=== PATIENT | female | born 1975 | race Caucasian/White ===

== ENCOUNTER 2020-12-17 13:55 | Inpatient (IN) | payer OTHER ==
[2020-12-17 15:08] VITALS: BMI 26.4
[2020-12-17] MEDS ORDERED: BISMUTH SUBSALICYLATE 524 MG/30 ML PO PRN (20:01)
[2020-12-17] MEDS ORDERED: ONDANSETRON *ODT* 4 MG TABLET SL PRN (20:01)
[2020-12-17] MEDS ORDERED: MAGNESIUM HYDROX 2400MG/30ML ORAL SUSPENSION 30 ML CUP PO PRN (20:01)
[2020-12-17] MEDS ORDERED: MAG HYDROX/AL HYDROX/SIMETH 30 ML UNIT-DOSE CUP PO PRN (20:01)
[2020-12-17] MEDS ORDERED: IBUPROFEN 200 MG TABLET PO PRN (20:01)
[2020-12-17] MEDS ORDERED: MAGNESIUM CITRATE 300 ML BOTTLE PO PRN (20:01)
[2020-12-17] MEDS ORDERED: MENTHOL/PHENOL 1 EACH UD MM PRN (20:01)
[2020-12-17] MEDS ORDERED: LORazepam 1 MG TABLET PO PRN (20:04)
[2020-12-17] MEDS ORDERED: SODIUM CHLORIDE NASAL SPRAY 44 ML BOTTLE NS PRN (20:04)
[2020-12-17] MEDS ORDERED: LORazepam 2 MG TABLET PO ONE (20:04)
[2020-12-17] MEDS: MELATONIN 5 MG TABLETS PO SCH (21:53)
[2020-12-17] MEDS: SPIRONOLACTONE 25 MG TABLET PO SCH (21:53)
[2020-12-17] MEDS: THIAMINE HCL 100 MG TABLET (FP) PO SCH (21:53)
[2020-12-17] MEDS: LORazepam 2 MG TABLET PO SCH (22:26)
[2020-12-18] MEDS: LORazepam 2 MG TABLET PO SCH ×4 (05:29→22:46)
[2020-12-18] MEDS: PRENATAL VITAMINS W/ FOLIC ACID TABLET (FP) PO SCH (10:48)
[2020-12-18] MEDS: FUROSEMIDE 20 MG TABLET (FP) PO SCH (10:48)
[2020-12-18] MEDS: LISINOPRIL 5 MG TABLET PO SCH (10:49)
[2020-12-18] MEDS: SPIRONOLACTONE 25 MG TABLET PO SCH (10:50)
[2020-12-18] MEDS: CYANOCOBALAMIN 1,000 MCG TABLET (FP) PO SCH (10:50)
[2020-12-18] MEDS: THIAMINE HCL 100 MG TABLET (FP) PO SCH ×2 (10:50→22:46)
[2020-12-18] MEDS: FERROUS SO4 325 MG TABLET (FP) PO SCH (10:50)
[2020-12-18] MEDS: SERTRALINE HCL 25 MG TABLET (FP) PO SCH (11:35)
[2020-12-18 13:17] LABS: HEMATOCRIT 33.3 % (32.4-45.2); HEMOGLOBIN 10.8 GM/dL (10.7-15.3); MCH 26.9 pg (25.7-33.7); MCHC 32.6 g/dl (32.0-36.0); MEAN CELL VOLUME 82.7 fl (80-96); PLATELET COUNT 133 10^3/uL (134-434); RBC 4.02 M/mm3 (3.60-5.2); RDW 19.2 % (11.6-15.6); WHITE BLOOD COUNT 3.5 K/mm3 (4.0-10.0)
[2020-12-18 13:22] LABS: CALCIUM 8.3 mg/dL (8.5-10.1)
[2020-12-18 13:23] LABS: ALBUMIN 2.6 g/dl (3.4-5.0); BLOOD UREA NITROGEN 7.8 mg/dL (7-18)
[2020-12-18 13:27] LABS: CREATININE 0.5 mg/dL (0.55-1.3)
[2020-12-18 13:29] LABS: BILIRUBIN,TOTAL 1.3 mg/dL (0.2-1); TOT PROT 7.5 g/dl (6.4-8.2)
[2020-12-18] MEDS: hydrOXYzine PAMOATE 25 MG CAPSULE (FP) PO PRN (17:51)
[2020-12-18] MEDS ORDERED: cloNIDine HCL 0.1 MG TABLET PO ONE (18:45)
[2020-12-18] MEDS: MELATONIN 5 MG TABLETS PO SCH (22:46)
[2020-12-19] MEDS: LORazepam 1 MG TABLET PO SCH ×4 (06:52→22:49)
[2020-12-19] MEDS ORDERED: MASKS NR ONE (06:55)
[2020-12-19] MEDS: PRENATAL VITAMINS W/ FOLIC ACID TABLET (FP) PO SCH (10:33)
[2020-12-19] MEDS: LISINOPRIL 5 MG TABLET PO SCH (10:33)
[2020-12-19] MEDS: FUROSEMIDE 20 MG TABLET (FP) PO SCH (10:33)
[2020-12-19] MEDS: SPIRONOLACTONE 25 MG TABLET PO SCH (10:33)
[2020-12-19] MEDS: SERTRALINE HCL 25 MG TABLET (FP) PO SCH (10:33)
[2020-12-19] MEDS: FERROUS SO4 325 MG TABLET (FP) PO SCH (10:34)
[2020-12-19] MEDS: THIAMINE HCL 100 MG TABLET (FP) PO SCH ×2 (10:34→22:49)
[2020-12-19] MEDS: CYANOCOBALAMIN 1,000 MCG TABLET (FP) PO SCH (10:34)
[2020-12-19] MEDS: MELATONIN 5 MG TABLETS PO SCH (22:49)
[2020-12-19] MEDS: hydrOXYzine PAMOATE 25 MG CAPSULE (FP) PO PRN (22:51)
[2020-12-20] MEDS ORDERED: LORazepam 0.5 MG TABLET PO PRN
[2020-12-20] MEDS: LORazepam 0.5 MG TABLET PO SCH ×4 (05:55→22:12)
[2020-12-20] MEDS: FUROSEMIDE 20 MG TABLET (FP) PO SCH (10:19)
[2020-12-20] MEDS: THIAMINE HCL 100 MG TABLET (FP) PO SCH ×2 (10:19→22:11)
[2020-12-20] MEDS: CYANOCOBALAMIN 1,000 MCG TABLET (FP) PO SCH (10:19)
[2020-12-20] MEDS: FERROUS SO4 325 MG TABLET (FP) PO SCH (10:19)
[2020-12-20] MEDS: PRENATAL VITAMINS W/ FOLIC ACID TABLET (FP) PO SCH (10:19)
[2020-12-20] MEDS: SERTRALINE HCL 25 MG TABLET (FP) PO SCH (10:19)
[2020-12-20] MEDS: LISINOPRIL 5 MG TABLET PO SCH (10:19)
[2020-12-20] MEDS: SPIRONOLACTONE 25 MG TABLET PO SCH (11:26)
[2020-12-20 14:25] LABS: BILIRUBIN,DIRECT 0.8 mg/dL (0.0-0.2)
[2020-12-20 14:27] LABS: BILIRUBIN,TOTAL 2.5 mg/dL (0.2-1); TOT PROT 8.5 g/dl (6.4-8.2)
[2020-12-20] MEDS: hydrOXYzine PAMOATE 25 MG CAPSULE (FP) PO PRN (18:28)
[2020-12-20] MEDS: MELATONIN 5 MG TABLETS PO SCH (22:15)
[2020-12-21] MEDS ORDERED: LORazepam 0.5 MG TABLET PO ONE (05:00)
[2020-12-21 08:51] VITALS: BP 125/79; PULSE 73; TEMP 96.8
[2020-12-21] MEDS: SERTRALINE HCL 25 MG TABLET (FP) PO SCH (10:06)
[2020-12-21] MEDS: CYANOCOBALAMIN 1,000 MCG TABLET (FP) PO SCH (10:06)
[2020-12-21] MEDS: FERROUS SO4 325 MG TABLET (FP) PO SCH (10:06)
[2020-12-21] MEDS: SPIRONOLACTONE 25 MG TABLET PO SCH (10:06)
[2020-12-21] MEDS: FUROSEMIDE 20 MG TABLET (FP) PO SCH (10:06)
[2020-12-21] MEDS: PRENATAL VITAMINS W/ FOLIC ACID TABLET (FP) PO SCH (10:07)
[2020-12-21] MEDS: LISINOPRIL 5 MG TABLET PO SCH (10:08)
[2020-12-21] MEDS: THIAMINE HCL 100 MG TABLET (FP) PO SCH (10:10)
== END 2020-12-21 12:30 | disposition other institution (70) | DRG 775 ==
LOC: YASAS 13:55 → Y3N 19:41
PROVIDERS: ADMIT Allergy & Immunology; ATTEND Allergy & Immunology
PROC: HZ2ZZZZ Detoxification Services for Substance Abuse Treatment (ICD-10-PCS; principal; 2020-12-17)
DX: F10.230 Alcohol dependence with withdrawal, uncomplicated (principal); F10.24 Alcohol dependence with alcohol-induced mood disorder; F10.220 Alcohol dependence with intoxication, uncomplicated; I10 Essential (primary) hypertension; H91.91 Unspecified hearing loss, right ear; M54.5 Low back pain; G89.29 Other chronic pain; R73.9 Hyperglycemia, unspecified; R94.5 Abnormal results of liver function studies; Z86.59 Personal history of other mental and behavioral disorders; Z87.891 Personal history of nicotine dependence; Z99.89 Dependence on other enabling machines and devices; Z88.0 Allergy status to penicillin; Z56.0 Unemployment, unspecified
CPT/HCPCS: 36415; 80053; 80076; 81025; 82947; 85027; 86780; C9803; J0735; U0003; U0005

== ENCOUNTER 2020-12-21 12:56 | Inpatient (IN) | payer OTHER ==
[2020-12-21] MEDS ORDERED: PNEUMOC 13-VAL CONJ-DIP CRM/PF 0.5 ML DISP.SYRIN IM ONE (13:17)
[2020-12-21] MEDS ORDERED: MAGNESIUM CITRATE 300 ML BOTTLE PO PRN (14:10)
[2020-12-21] MEDS ORDERED: NICOTINE 10 MG CARTRIDGE (INHALER) IH PRN (14:10)
[2020-12-21] MEDS ORDERED: guaiFENesin 200 MG/10 ML 10 ML UNIT-DOSE CUPS PO PRN (14:10)
[2020-12-21] MEDS ORDERED: MAGNESIUM HYDROX 2400MG/30ML ORAL SUSPENSION 30 ML CUP PO PRN (14:10)
[2020-12-21] MEDS ORDERED: MENTHOL/PHENOL 1 EACH UD MM PRN (14:10)
[2020-12-21] MEDS ORDERED: hydrOXYzine PAMOATE 25 MG CAPSULE (FP) PO PRN (14:10)
[2020-12-21] MEDS ORDERED: ACETAMINOPHEN 325 MG TABLET (FP) PO PRN (14:10)
[2020-12-21] MEDS ORDERED: P-EPHED 60MG/TRIPROLIDI 2.5MG TABLET PO PRN (14:10)
[2020-12-21] MEDS ORDERED: LOPERAMIDE HCL 2 MG CAPSULE PO PRN (14:10)
[2020-12-21] MEDS: IBUPROFEN 400 MG TABLET (FP) PO PRN (18:23)
[2020-12-21] MEDS: MELATONIN 5 MG TABLETS PO SCH (21:39)
[2020-12-21] MEDS: THIAMINE HCL 100 MG TABLET (FP) PO SCH (21:39)
[2020-12-22] MEDS: PRENATAL VITAMINS W/ FOLIC ACID TABLET (FP) PO SCH (10:06)
[2020-12-22] MEDS: SERTRALINE HCL 25 MG TABLET (FP) PO SCH (10:08)
[2020-12-22] MEDS: LISINOPRIL 5 MG TABLET PO SCH (10:08)
[2020-12-22] MEDS: NICOTINE 7 MG/24 HOURS TOPICAL PATCH TD SCH (10:08)
[2020-12-22] MEDS: FERROUS SO4 325 MG TABLET (FP) PO SCH (10:08)
[2020-12-22] MEDS: SPIRONOLACTONE 25 MG TABLET PO SCH (10:09)
[2020-12-22] MEDS: CYANOCOBALAMIN 1,000 MCG TABLET (FP) PO SCH (10:10)
[2020-12-22] MEDS: SODIUM CHLORIDE NASAL SPRAY 44 ML BOTTLE NS PRN (10:11)
[2020-12-22] MEDS: FUROSEMIDE 20 MG TABLET (FP) PO SCH (10:45)
[2020-12-22] MEDS ORDERED: PNEUMOCOCCAL 23 VACCINE 0.5 ML VIAL IM ONE (12:00)
[2020-12-22] MEDS: IBUPROFEN 400 MG TABLET (FP) PO PRN (13:00)
[2020-12-22] MEDS ORDERED: TUBERCULIN PPD 5 TU/0.1ML VIAL ID ONE (18:04)
[2020-12-22] MEDS: THIAMINE HCL 100 MG TABLET (FP) PO SCH (21:43)
[2020-12-22] MEDS: MELATONIN 5 MG TABLETS PO SCH (21:43)
[2020-12-23] MEDS: SERTRALINE HCL 25 MG TABLET (FP) PO SCH (09:39)
[2020-12-23] MEDS: SPIRONOLACTONE 25 MG TABLET PO SCH (09:40)
[2020-12-23] MEDS: LISINOPRIL 5 MG TABLET PO SCH (09:40)
[2020-12-23] MEDS: FUROSEMIDE 20 MG TABLET (FP) PO SCH (09:40)
[2020-12-23] MEDS: PRENATAL VITAMINS W/ FOLIC ACID TABLET (FP) PO SCH (09:40)
[2020-12-23] MEDS: FERROUS SO4 325 MG TABLET (FP) PO SCH (09:40)
[2020-12-23] MEDS: NICOTINE 7 MG/24 HOURS TOPICAL PATCH TD SCH (09:40)
[2020-12-23] MEDS: CYANOCOBALAMIN 1,000 MCG TABLET (FP) PO SCH (09:40)
[2020-12-23] MEDS: IBUPROFEN 400 MG TABLET (FP) PO PRN (17:32)
[2020-12-23] MEDS: MELATONIN 5 MG TABLETS PO SCH (21:33)
[2020-12-23] MEDS: THIAMINE HCL 100 MG TABLET (FP) PO SCH (21:33)
[2020-12-24] MEDS: PRENATAL VITAMINS W/ FOLIC ACID TABLET (FP) PO SCH (10:18)
[2020-12-24] MEDS: NICOTINE 7 MG/24 HOURS TOPICAL PATCH TD SCH (10:18)
[2020-12-24] MEDS: LISINOPRIL 5 MG TABLET PO SCH (10:19)
[2020-12-24] MEDS: SERTRALINE HCL 25 MG TABLET (FP) PO SCH (10:19)
[2020-12-24] MEDS: FERROUS SO4 325 MG TABLET (FP) PO SCH (10:19)
[2020-12-24] MEDS: SPIRONOLACTONE 25 MG TABLET PO SCH (10:20)
[2020-12-24] MEDS: FUROSEMIDE 20 MG TABLET (FP) PO SCH (10:20)
[2020-12-24] MEDS: CYANOCOBALAMIN 1,000 MCG TABLET (FP) PO SCH (10:22)
[2020-12-24] MEDS: THIAMINE HCL 100 MG TABLET (FP) PO SCH (21:30)
[2020-12-24] MEDS: MELATONIN 5 MG TABLETS PO SCH ×2 (21:30→21:46)
[2020-12-24] MEDS: IBUPROFEN 400 MG TABLET (FP) PO PRN (23:34)
[2020-12-25] MEDS: SPIRONOLACTONE 25 MG TABLET PO SCH (10:12)
[2020-12-25] MEDS: SERTRALINE HCL 25 MG TABLET (FP) PO SCH (10:12)
[2020-12-25] MEDS: CYANOCOBALAMIN 1,000 MCG TABLET (FP) PO SCH (10:12)
[2020-12-25] MEDS: PRENATAL VITAMINS W/ FOLIC ACID TABLET (FP) PO SCH (10:12)
[2020-12-25] MEDS: SODIUM CHLORIDE NASAL SPRAY 44 ML BOTTLE NS PRN (10:12)
[2020-12-25] MEDS: FERROUS SO4 325 MG TABLET (FP) PO SCH (10:12)
[2020-12-25] MEDS: LISINOPRIL 5 MG TABLET PO SCH (10:12)
[2020-12-25] MEDS: NICOTINE 7 MG/24 HOURS TOPICAL PATCH TD SCH (10:13)
[2020-12-25] MEDS: FUROSEMIDE 20 MG TABLET (FP) PO SCH (10:14)
[2020-12-25] MEDS: MELATONIN 5 MG TABLETS PO SCH (21:46)
[2020-12-25] MEDS: THIAMINE HCL 100 MG TABLET (FP) PO SCH (21:47)
[2020-12-26] MEDS ORDERED: PT OWN MED DRAWER 7, Y5N ONE (09:02)
[2020-12-26] MEDS: CYANOCOBALAMIN 1,000 MCG TABLET (FP) PO SCH (09:58)
[2020-12-26] MEDS: FERROUS SO4 325 MG TABLET (FP) PO SCH (09:58)
[2020-12-26] MEDS: SPIRONOLACTONE 25 MG TABLET PO SCH (09:58)
[2020-12-26] MEDS: LISINOPRIL 5 MG TABLET PO SCH (09:58)
[2020-12-26] MEDS: FUROSEMIDE 20 MG TABLET (FP) PO SCH (09:58)
[2020-12-26] MEDS: SERTRALINE HCL 25 MG TABLET (FP) PO SCH (09:58)
[2020-12-26] MEDS: PRENATAL VITAMINS W/ FOLIC ACID TABLET (FP) PO SCH (09:58)
[2020-12-26] MEDS: NICOTINE 7 MG/24 HOURS TOPICAL PATCH TD SCH (09:59)
[2020-12-26] MEDS: MELATONIN 5 MG TABLETS PO SCH (21:18)
[2020-12-26] MEDS: THIAMINE HCL 100 MG TABLET (FP) PO SCH (21:19)
[2020-12-27] MEDS: PRENATAL VITAMINS W/ FOLIC ACID TABLET (FP) PO SCH (10:32)
[2020-12-27] MEDS: SERTRALINE HCL 25 MG TABLET (FP) PO SCH (10:33)
[2020-12-27] MEDS: FERROUS SO4 325 MG TABLET (FP) PO SCH (10:33)
[2020-12-27] MEDS: CYANOCOBALAMIN 1,000 MCG TABLET (FP) PO SCH (10:34)
[2020-12-27] MEDS: LISINOPRIL 5 MG TABLET PO SCH (10:35)
[2020-12-27] MEDS: NICOTINE 7 MG/24 HOURS TOPICAL PATCH TD SCH (10:35)
[2020-12-27] MEDS: FUROSEMIDE 20 MG TABLET (FP) PO SCH (10:35)
[2020-12-27] MEDS: SPIRONOLACTONE 25 MG TABLET PO SCH (10:53)
[2020-12-27] MEDS: SODIUM CHLORIDE NASAL SPRAY 44 ML BOTTLE NS PRN (10:53)
[2020-12-27] MEDS: MELATONIN 5 MG TABLETS PO SCH (21:45)
[2020-12-27] MEDS: THIAMINE HCL 100 MG TABLET (FP) PO SCH (21:45)
[2020-12-28] MEDS: LISINOPRIL 5 MG TABLET PO SCH (10:24)
[2020-12-28] MEDS: PRENATAL VITAMINS W/ FOLIC ACID TABLET (FP) PO SCH (10:24)
[2020-12-28] MEDS: SERTRALINE HCL 25 MG TABLET (FP) PO SCH (10:24)
[2020-12-28] MEDS: FERROUS SO4 325 MG TABLET (FP) PO SCH (10:24)
[2020-12-28] MEDS: FUROSEMIDE 20 MG TABLET (FP) PO SCH (10:24)
[2020-12-28] MEDS: SPIRONOLACTONE 25 MG TABLET PO SCH (10:24)
[2020-12-28] MEDS: NICOTINE 7 MG/24 HOURS TOPICAL PATCH TD SCH (10:24)
[2020-12-28] MEDS: CYANOCOBALAMIN 1,000 MCG TABLET (FP) PO SCH (11:00)
[2020-12-28] MEDS: MELATONIN 5 MG TABLETS PO SCH (21:47)
[2020-12-28] MEDS: THIAMINE HCL 100 MG TABLET (FP) PO SCH (21:47)
[2020-12-29] MEDS: SODIUM CHLORIDE NASAL SPRAY 44 ML BOTTLE NS PRN (06:38)
[2020-12-29] MEDS ORDERED: PT OWN MED DRAWER 7, Y5N ONE (06:40)
[2020-12-29] MEDS: PRENATAL VITAMINS W/ FOLIC ACID TABLET (FP) PO SCH (09:17)
[2020-12-29] MEDS: FUROSEMIDE 20 MG TABLET (FP) PO SCH (09:18)
[2020-12-29] MEDS: SERTRALINE HCL 25 MG TABLET (FP) PO SCH (09:18)
[2020-12-29] MEDS: NICOTINE 7 MG/24 HOURS TOPICAL PATCH TD SCH (09:18)
[2020-12-29] MEDS: FERROUS SO4 325 MG TABLET (FP) PO SCH (09:18)
[2020-12-29] MEDS: CYANOCOBALAMIN 1,000 MCG TABLET (FP) PO SCH (09:18)
[2020-12-29] MEDS: SPIRONOLACTONE 25 MG TABLET PO SCH (09:18)
[2020-12-29] MEDS: LISINOPRIL 5 MG TABLET PO SCH (09:19)
[2020-12-29] MEDS: THIAMINE HCL 100 MG TABLET (FP) PO SCH (21:33)
[2020-12-29] MEDS: MELATONIN 5 MG TABLETS PO SCH (21:33)
[2020-12-30] MEDS: PRENATAL VITAMINS W/ FOLIC ACID TABLET (FP) PO SCH (10:20)
[2020-12-30] MEDS: FERROUS SO4 325 MG TABLET (FP) PO SCH (10:20)
[2020-12-30] MEDS: SERTRALINE HCL 25 MG TABLET (FP) PO SCH (10:20)
[2020-12-30] MEDS: NICOTINE 7 MG/24 HOURS TOPICAL PATCH TD SCH (10:20)
[2020-12-30] MEDS: LISINOPRIL 5 MG TABLET PO SCH (10:22)
[2020-12-30] MEDS: FUROSEMIDE 20 MG TABLET (FP) PO SCH (10:22)
[2020-12-30] MEDS: CYANOCOBALAMIN 1,000 MCG TABLET (FP) PO SCH (10:23)
[2020-12-30] MEDS: SPIRONOLACTONE 25 MG TABLET PO SCH (10:24)
[2020-12-30] MEDS: MELATONIN 5 MG TABLETS PO SCH (21:34)
[2020-12-30] MEDS: THIAMINE HCL 100 MG TABLET (FP) PO SCH (21:34)
[2020-12-31] MEDS: SODIUM CHLORIDE NASAL SPRAY 44 ML BOTTLE NS PRN ×2 (10:35→20:46)
[2020-12-31] MEDS: SPIRONOLACTONE 25 MG TABLET PO SCH (10:35)
[2020-12-31] MEDS: SERTRALINE HCL 25 MG TABLET (FP) PO SCH (10:36)
[2020-12-31] MEDS: FUROSEMIDE 20 MG TABLET (FP) PO SCH (10:36)
[2020-12-31] MEDS: NICOTINE 7 MG/24 HOURS TOPICAL PATCH TD SCH (10:36)
[2020-12-31] MEDS: CYANOCOBALAMIN 1,000 MCG TABLET (FP) PO SCH (10:36)
[2020-12-31] MEDS: FERROUS SO4 325 MG TABLET (FP) PO SCH (10:36)
[2020-12-31] MEDS: PRENATAL VITAMINS W/ FOLIC ACID TABLET (FP) PO SCH (10:36)
[2020-12-31 11:18] LABS: HEMATOCRIT 37.8 % (32.4-45.2); HEMOGLOBIN 12.4 GM/dL (10.7-15.3); MCH 27.5 pg (25.7-33.7); MCHC 32.8 g/dl (32.0-36.0); MEAN PLT VOLUME 8.9 fl (7.5-11.1); PLATELET COUNT 124 10^3/uL (134-434); RDW 21.7 % (11.6-15.6); WHITE BLOOD COUNT 3.6 K/mm3 (4.0-10.0)
[2020-12-31 11:21] LABS: INR 1.4 (0.83-1.09)
[2020-12-31 11:27] LABS: CALCIUM 8.7 mg/dL (8.5-10.1)
[2020-12-31 11:28] LABS: BLOOD UREA NITROGEN 7.4 mg/dL (7-18)
[2020-12-31 11:29] LABS: CREATININE 0.5 mg/dL (0.55-1.3)
[2020-12-31 11:30] LABS: BILIRUBIN,TOTAL 1.1 mg/dL (0.2-1); TOT PROT 8.1 g/dl (6.4-8.2)
[2020-12-31] MEDS: THIAMINE HCL 100 MG TABLET (FP) PO SCH (21:07)
[2020-12-31] MEDS: MELATONIN 5 MG TABLETS PO SCH (21:07)
[2021-01-01] MEDS: PRENATAL VITAMINS W/ FOLIC ACID TABLET (FP) PO SCH (10:37)
[2021-01-01] MEDS: FERROUS SO4 325 MG TABLET (FP) PO SCH (10:37)
[2021-01-01] MEDS: SPIRONOLACTONE 25 MG TABLET PO SCH (10:38)
[2021-01-01] MEDS: NICOTINE 7 MG/24 HOURS TOPICAL PATCH TD SCH (10:38)
[2021-01-01] MEDS: CYANOCOBALAMIN 1,000 MCG TABLET (FP) PO SCH (10:38)
[2021-01-01] MEDS: FUROSEMIDE 20 MG TABLET (FP) PO SCH (10:38)
[2021-01-01] MEDS: SERTRALINE HCL 25 MG TABLET (FP) PO SCH (22:01)
[2021-01-01] MEDS: MELATONIN 5 MG TABLETS PO SCH (22:01)
[2021-01-01] MEDS: THIAMINE HCL 100 MG TABLET (FP) PO SCH (22:01)
[2021-01-02] MEDS: FUROSEMIDE 20 MG TABLET (FP) PO SCH (10:15)
[2021-01-02] MEDS: SPIRONOLACTONE 25 MG TABLET PO SCH (10:15)
[2021-01-02] MEDS: FERROUS SO4 325 MG TABLET (FP) PO SCH (10:15)
[2021-01-02] MEDS: PRENATAL VITAMINS W/ FOLIC ACID TABLET (FP) PO SCH (10:15)
[2021-01-02] MEDS: NICOTINE 7 MG/24 HOURS TOPICAL PATCH TD SCH (10:16)
[2021-01-02] MEDS: CYANOCOBALAMIN 1,000 MCG TABLET (FP) PO SCH (10:16)
[2021-01-02] MEDS: THIAMINE HCL 100 MG TABLET (FP) PO SCH (21:40)
[2021-01-02] MEDS: SERTRALINE HCL 25 MG TABLET (FP) PO SCH (21:41)
[2021-01-02] MEDS: MELATONIN 5 MG TABLETS PO SCH (21:42)
[2021-01-03] MEDS: PRENATAL VITAMINS W/ FOLIC ACID TABLET (FP) PO SCH (10:17)
[2021-01-03] MEDS: FERROUS SO4 325 MG TABLET (FP) PO SCH (10:17)
[2021-01-03] MEDS: SPIRONOLACTONE 25 MG TABLET PO SCH (10:17)
[2021-01-03] MEDS: FUROSEMIDE 20 MG TABLET (FP) PO SCH (10:18)
[2021-01-03] MEDS: CYANOCOBALAMIN 1,000 MCG TABLET (FP) PO SCH (10:18)
[2021-01-03] MEDS: NICOTINE 7 MG/24 HOURS TOPICAL PATCH TD SCH (10:19)
[2021-01-03] MEDS: SERTRALINE HCL 25 MG TABLET (FP) PO SCH (21:50)
[2021-01-03] MEDS: THIAMINE HCL 100 MG TABLET (FP) PO SCH (21:51)
[2021-01-03] MEDS: MELATONIN 5 MG TABLETS PO SCH (21:51)
[2021-01-04] MEDS: FERROUS SO4 325 MG TABLET (FP) PO SCH (10:32)
[2021-01-04] MEDS: LISINOPRIL 5 MG TABLET PO SCH (10:32)
[2021-01-04] MEDS: PRENATAL VITAMINS W/ FOLIC ACID TABLET (FP) PO SCH (10:35)
[2021-01-04] MEDS: CYANOCOBALAMIN 1,000 MCG TABLET (FP) PO SCH (10:35)
[2021-01-04] MEDS: NICOTINE 7 MG/24 HOURS TOPICAL PATCH TD SCH (10:38)
[2021-01-04] MEDS: SPIRONOLACTONE 25 MG TABLET PO SCH (10:38)
[2021-01-04] MEDS: FUROSEMIDE 20 MG TABLET (FP) PO SCH (10:38)
[2021-01-04] MEDS: MAG HYDROX/AL HYDROX/SIMETH 30 ML UNIT-DOSE CUP PO PRN (18:44)
[2021-01-04] MEDS: THIAMINE HCL 100 MG TABLET (FP) PO SCH (21:47)
[2021-01-04] MEDS: SERTRALINE HCL 25 MG TABLET (FP) PO SCH (21:48)
[2021-01-04] MEDS: MELATONIN 5 MG TABLETS PO SCH (21:48)
[2021-01-05] MEDS: LISINOPRIL 5 MG TABLET PO SCH (10:33)
[2021-01-05] MEDS: FERROUS SO4 325 MG TABLET (FP) PO SCH (10:33)
[2021-01-05] MEDS: PRENATAL VITAMINS W/ FOLIC ACID TABLET (FP) PO SCH (10:33)
[2021-01-05] MEDS: NICOTINE 7 MG/24 HOURS TOPICAL PATCH TD SCH (10:34)
[2021-01-05] MEDS: CYANOCOBALAMIN 1,000 MCG TABLET (FP) PO SCH (10:35)
[2021-01-05] MEDS: SPIRONOLACTONE 25 MG TABLET PO SCH (10:36)
[2021-01-05] MEDS: FUROSEMIDE 20 MG TABLET (FP) PO SCH (10:36)
[2021-01-05] MEDS: SODIUM CHLORIDE NASAL SPRAY 44 ML BOTTLE NS PRN (10:37)
[2021-01-05] MEDS: MAG HYDROX/AL HYDROX/SIMETH 30 ML UNIT-DOSE CUP PO PRN (14:09)
[2021-01-05] MEDS: MELATONIN 5 MG TABLETS PO SCH (21:41)
[2021-01-05] MEDS: SERTRALINE HCL 25 MG TABLET (FP) PO SCH (21:41)
[2021-01-05] MEDS: THIAMINE HCL 100 MG TABLET (FP) PO SCH (21:42)
[2021-01-06 07:33] VITALS: TEMP 96.9
[2021-01-06] MEDS: PRENATAL VITAMINS W/ FOLIC ACID TABLET (FP) PO SCH (09:30)
[2021-01-06] MEDS: FERROUS SO4 325 MG TABLET (FP) PO SCH (09:31)
[2021-01-06] MEDS: CYANOCOBALAMIN 1,000 MCG TABLET (FP) PO SCH (09:31)
[2021-01-06] MEDS: SODIUM CHLORIDE NASAL SPRAY 44 ML BOTTLE NS PRN (09:33)
[2021-01-06] MEDS: NICOTINE 7 MG/24 HOURS TOPICAL PATCH TD SCH (09:34)
[2021-01-06] MEDS: LISINOPRIL 5 MG TABLET PO SCH (09:34)
[2021-01-06] MEDS: FUROSEMIDE 20 MG TABLET (FP) PO SCH (09:34)
[2021-01-06] MEDS: SPIRONOLACTONE 25 MG TABLET PO SCH (09:34)
[2021-01-06 10:06] VITALS: BP 100/56; PULSE 66
== END 2021-01-06 10:15 | disposition home or self-care (01) | DRG 772 ==
LOC: YASAS 12:56 → Y5N 12:58
PROVIDERS: ADMIT Allergy & Immunology; ATTEND Allergy & Immunology
PROC: HZ42ZZZ Group Counseling for Substance Abuse Treatment, Cognitive-Behavioral (ICD-10-PCS; principal; 2020-12-21)
DX: F10.20 Alcohol dependence, uncomplicated (principal); F32.9 Major depressive disorder, single episode, unspecified; I10 Essential (primary) hypertension; K74.60 Unspecified cirrhosis of liver; Z98.890 Other specified postprocedural states; Z91.81 History of falling; Z99.89 Dependence on other enabling machines and devices; Z91.011 Allergy to milk products; Z88.0 Allergy status to penicillin; Z86.59 Personal history of other mental and behavioral disorders
CPT/HCPCS: 36415; 80053; 82962; 85027; 85610; C9803; U0003; U0005

== ENCOUNTER 2021-12-02 14:04 | Inpatient (IN) | payer OTHER ==
[2021-12-02 15:21] VITALS: BMI 28.9
[2021-12-02] MEDS ORDERED: MAG HYDROX/AL HYDROX/SIMETH 30 ML UNIT-DOSE CUP PO PRN (17:48)
[2021-12-02] MEDS ORDERED: MAGNESIUM HYDROX 2400MG/30ML ORAL SUSPENSION 30 ML CUP PO PRN (17:48)
[2021-12-02] MEDS ORDERED: LOPERAMIDE HCL 2 MG CAPSULE PO PRN (17:48)
[2021-12-02] MEDS ORDERED: chlordiazePOXIDE HCL 25 MG CAPSULE PO PRN (17:48)
[2021-12-02] MEDS ORDERED: BISMUTH SUBSALICYLATE 524 MG/30 ML PO PRN (17:48)
[2021-12-02] MEDS ORDERED: BENZOCAINE/MENTHOL (CHLORASEPTIC ) LOZENGE MM PRN (17:48)
[2021-12-02] MEDS ORDERED: IBUPROFEN 400 MG TABLET (FP) PO PRN (17:48)
[2021-12-02] MEDS ORDERED: ACETAMINOPHEN 325 MG TABLET (FP) PO PRN ×2 (17:48)
[2021-12-02] MEDS ORDERED: MAGNESIUM CITRATE 300 ML BOTTLE PO PRN (17:48)
[2021-12-02] MEDS ORDERED: DICYCLOMINE HCL 10 MG CAPSULE PO PRN (17:48)
[2021-12-02] MEDS ORDERED: IBUPROFEN 600 MG TABLET (FP) PO PRN (17:48)
[2021-12-02] MEDS ORDERED: SODIUM CHLORIDE NASAL SPRAY 44 ML BOTTLE NS PRN (17:51)
[2021-12-02] MEDS: chlordiazePOXIDE HCL 25 MG CAPSULE PO SCH ×2 (19:38→22:19)
[2021-12-02] MEDS: hydrOXYzine PAMOATE 25 MG CAPSULE (FP) PO SCH ×2 (19:38→22:19)
[2021-12-02] MEDS: PRENATAL VITAMINS W/ FOLIC ACID TABLET (FP) PO SCH (19:39)
[2021-12-02] MEDS: THIAMINE HCL 100 MG TABLET (FP) PO SCH (22:19)
[2021-12-02] MEDS: MELATONIN 5 MG TABLETS PO SCH (22:19)
[2021-12-03] MEDS: chlordiazePOXIDE HCL 25 MG CAPSULE PO SCH ×4 (05:49→22:44)
[2021-12-03] MEDS: hydrOXYzine PAMOATE 25 MG CAPSULE (FP) PO SCH ×5 (05:49→22:43)
[2021-12-03] MEDS ORDERED: THIAMINE HCL 100 MG TABLET (FP) PO SCH (10:00)
[2021-12-03] MEDS: ONDANSETRON *ODT* 4 MG TABLET SL PRN (10:56)
[2021-12-03] MEDS: SPIRONOLACTONE 25 MG TABLET PO SCH (10:56)
[2021-12-03] MEDS: PRENATAL VITAMINS W/ FOLIC ACID TABLET (FP) PO SCH (10:57)
[2021-12-03] MEDS: FOLIC ACID 1 MG TABLET (FP) PO SCH (10:58)
[2021-12-03] MEDS: FERROUS SO4 325 MG TABLET (FP) PO SCH (10:58)
[2021-12-03] MEDS: CYANOCOBALAMIN 1,000 MCG TABLET (FP) PO SCH (10:58)
[2021-12-03] MEDS: NICOTINE 10 MG CARTRIDGE (INHALER) IH PRN (11:04)
[2021-12-03 13:55] LABS: CALCIUM 7.7 mg/dL (8.5-10.1)
[2021-12-03 13:56] LABS: ALBUMIN 2.7 g/dl (3.4-5.0); BLOOD UREA NITROGEN 11.1 mg/dL (7-18)
[2021-12-03 13:57] LABS: HEMOGLOBIN 13.2 GM/dL (10.7-15.3); MCH 30.6 pg (25.7-33.7); MCHC 33.9 g/dl (32.0-36.0); MEAN CELL VOLUME 90.3 fl (80-96); MEAN PLT VOLUME 10.9 fl (7.5-11.1); PLATELET COUNT 88 10^3/uL (134-434); RBC 4.32 M/mm3 (3.60-5.2); RDW 14.4 % (11.6-15.6); WHITE BLOOD COUNT 3.9 K/mm3 (4.0-10.0)
[2021-12-03 13:59] LABS: CREATININE 0.6 mg/dL (0.55-1.3)
[2021-12-03 14:01] LABS: TOT PROT 5.9 g/dl (6.4-8.2)
[2021-12-03] MEDS: METHOCARBAMOL 500 MG TABLET PO PRN (17:48)
[2021-12-03] MEDS: SERTRALINE HCL 25 MG TABLET (FP) PO SCH (18:02)
[2021-12-03] MEDS: MELATONIN 5 MG TABLETS PO SCH (22:42)
[2021-12-03] MEDS: THIAMINE HCL 100 MG TABLET (FP) PO SCH (22:43)
[2021-12-04] MEDS: chlordiazePOXIDE HCL 25 MG CAPSULE PO SCH ×4 (05:47→22:21)
[2021-12-04] MEDS: hydrOXYzine PAMOATE 25 MG CAPSULE (FP) PO SCH ×5 (05:48→22:21)
[2021-12-04] MEDS: SPIRONOLACTONE 25 MG TABLET PO SCH (10:43)
[2021-12-04] MEDS: FERROUS SO4 325 MG TABLET (FP) PO SCH (10:43)
[2021-12-04] MEDS: CYANOCOBALAMIN 1,000 MCG TABLET (FP) PO SCH (10:43)
[2021-12-04] MEDS: PRENATAL VITAMINS W/ FOLIC ACID TABLET (FP) PO SCH (10:44)
[2021-12-04] MEDS: FOLIC ACID 1 MG TABLET (FP) PO SCH (10:44)
[2021-12-04] MEDS: NICOTINE 10 MG CARTRIDGE (INHALER) IH PRN (10:56)
[2021-12-04] MEDS ORDERED: POTASSIUM CHLORIDE ORAL LIQUID 20 MEQ/15 ML PO ONE (12:00)
[2021-12-04] MEDS: CALCIUM 250MG/VIT-D 125 UNITS 1 COMBO TABLET PO SCH ×2 (15:28→22:21)
[2021-12-04] MEDS: SERTRALINE HCL 25 MG TABLET (FP) PO SCH (17:35)
[2021-12-04] MEDS: MELATONIN 5 MG TABLETS PO SCH (22:21)
[2021-12-04] MEDS: THIAMINE HCL 100 MG TABLET (FP) PO SCH (22:21)
[2021-12-05] MEDS ORDERED: chlordiazePOXIDE HCL 10 MG CAPSULE PO PRN
[2021-12-05] MEDS: hydrOXYzine PAMOATE 25 MG CAPSULE (FP) PO SCH ×5 (05:48→23:03)
[2021-12-05] MEDS: chlordiazePOXIDE HCL 10 MG CAPSULE PO SCH ×4 (05:49→23:03)
[2021-12-05] MEDS: PRENATAL VITAMINS W/ FOLIC ACID TABLET (FP) PO SCH (10:54)
[2021-12-05] MEDS: SPIRONOLACTONE 25 MG TABLET PO SCH (10:55)
[2021-12-05] MEDS: FOLIC ACID 1 MG TABLET (FP) PO SCH (10:55)
[2021-12-05] MEDS: CYANOCOBALAMIN 1,000 MCG TABLET (FP) PO SCH (10:56)
[2021-12-05] MEDS: FERROUS SO4 325 MG TABLET (FP) PO SCH (11:00)
[2021-12-05] MEDS: CALCIUM 250MG/VIT-D 125 UNITS 1 COMBO TABLET PO SCH ×2 (13:22→23:03)
[2021-12-05] MEDS: SERTRALINE HCL 25 MG TABLET (FP) PO SCH (18:03)
[2021-12-05] MEDS: METHOCARBAMOL 500 MG TABLET PO PRN (18:20)
[2021-12-05] MEDS: THIAMINE HCL 100 MG TABLET (FP) PO SCH (23:03)
[2021-12-05] MEDS: MELATONIN 5 MG TABLETS PO SCH (23:04)
[2021-12-06] MEDS: chlordiazePOXIDE HCL 10 MG CAPSULE PO SCH ×2 (06:32→18:49)
[2021-12-06] MEDS: hydrOXYzine PAMOATE 25 MG CAPSULE (FP) PO SCH ×4 (06:32→18:49)
[2021-12-06] MEDS: NICOTINE 10 MG CARTRIDGE (INHALER) IH PRN (09:18)
[2021-12-06] MEDS: PRENATAL VITAMINS W/ FOLIC ACID TABLET (FP) PO SCH (10:29)
[2021-12-06] MEDS: SPIRONOLACTONE 25 MG TABLET PO SCH (10:30)
[2021-12-06] MEDS: FERROUS SO4 325 MG TABLET (FP) PO SCH (10:30)
[2021-12-06] MEDS: CYANOCOBALAMIN 1,000 MCG TABLET (FP) PO SCH (10:31)
[2021-12-06] MEDS: CALCIUM 250MG/VIT-D 125 UNITS 1 COMBO TABLET PO SCH (10:31)
[2021-12-06] MEDS: FOLIC ACID 1 MG TABLET (FP) PO SCH (10:31)
[2021-12-06] MEDS: SERTRALINE HCL 25 MG TABLET (FP) PO SCH (18:49)
[2021-12-06] MEDS: METHOCARBAMOL 500 MG TABLET PO PRN (18:50)
[2021-12-07] MEDS: CALCIUM 250MG/VIT-D 125 UNITS 1 COMBO TABLET PO SCH ×2 (00:17→09:38)
[2021-12-07] MEDS: MELATONIN 5 MG TABLETS PO SCH (00:17)
[2021-12-07] MEDS: hydrOXYzine PAMOATE 25 MG CAPSULE (FP) PO SCH ×3 (00:17→09:38)
[2021-12-07] MEDS: THIAMINE HCL 100 MG TABLET (FP) PO SCH (00:17)
[2021-12-07] MEDS: MAGNESIUM 30 MG PO SCH ×2 (01:53→02:45)
[2021-12-07] MEDS ORDERED: chlordiazePOXIDE HCL 10 MG CAPSULE PO ONE (05:00)
[2021-12-07] MEDS: NICOTINE 10 MG CARTRIDGE (INHALER) IH PRN (06:41)
[2021-12-07] MEDS: ONDANSETRON *ODT* 4 MG TABLET SL PRN (08:44)
[2021-12-07 09:24] VITALS: BP 125/77; PULSE 85; RESP 18; TEMP 97.5
[2021-12-07] MEDS: FERROUS SO4 325 MG TABLET (FP) PO SCH (09:37)
[2021-12-07] MEDS: PRENATAL VITAMINS W/ FOLIC ACID TABLET (FP) PO SCH (09:38)
[2021-12-07] MEDS: SPIRONOLACTONE 25 MG TABLET PO SCH (09:38)
[2021-12-07] MEDS: CYANOCOBALAMIN 1,000 MCG TABLET (FP) PO SCH (09:38)
[2021-12-07] MEDS: FOLIC ACID 1 MG TABLET (FP) PO SCH (09:38)
== END 2021-12-07 09:56 | disposition home or self-care (01) | DRG 775 ==
LOC: YASAS 14:04 → Y6N 16:59
PROVIDERS: ADMIT Allergy & Immunology; ATTEND Surgery
PROC: HZ2ZZZZ Detoxification Services for Substance Abuse Treatment (ICD-10-PCS; principal; 2021-12-02)
DX: F10.230 Alcohol dependence with withdrawal, uncomplicated (principal); F17.210 Nicotine dependence, cigarettes, uncomplicated; F10.24 Alcohol dependence with alcohol-induced mood disorder; E87.6 Hypokalemia; E83.81 Hungry bone syndrome; I10 Essential (primary) hypertension; M54.50 Low back pain, unspecified; G89.29 Other chronic pain; Z62.810 Personal history of physical and sexual abuse in childhood; Z28.310 Unvaccinated for COVID-19; Z91.51 Personal history of suicidal behavior; Z86.59 Personal history of other mental and behavioral disorders
CPT/HCPCS: 36415; 80053; 82247; 85027; 86780; 86803; C9803-CS; Q0162; U0003; U0005